=== PATIENT | male | born 1960 | race African-American/Black ===

== ENCOUNTER 2018-02-09 12:05 | Inpatient (IN) | payer OTHER ==
[2018-02-09 13:15] VITALS: BMI 22.4
--- NOTE | 2018-02-09 13:36 | HP ---
CIWA Score - CIWA Score Nausea/Vomitin-Mild Nausea/No Vomiting Muscle Tremors: 3 Anxiety: 3 Agitation: 3 Paroxysmal Sweats: 1-Minimal Palms Moist Orientation: 0-Oriented Tacttile Disturbances: 1-Very Mild Itch/Numbness Auditory Disturbances: 0-None Visual Disturbances: 0-None Headache: 1-Very Mild CIWA-Ar Total Score: 13 Admission ROS BHS - HPI Chief Complaint: alcohol withdrawal sx Allergies/Adverse Reactions: Allergies Allergy/AdvReac Type Severity Reaction Status Date / Time No Known Allergies Allergy Verified 02/09/18 13:36 History of Present Illness: 57 years old male with long history of alcohol nicotine dependence last detox [facility] "many years ago" stated chronic back pain an trouble sleep at night is admitted to detox Exam Limitations: No Limitations - Ebola screening Have you traveled outside of the country in the last 21 days: No Have you had contact with anyone from an Ebola affected area: No Have you been sick,other than usual withdrawal symptoms: No Do you have a fever: No - Review of Systems Constitutional: Loss of Appetite, Changes in sleep, Unintentional Wgt. Loss, Unexplained wgt Loss EENT: reports: Blurred Vision (eye glasses) Respiratory: reports: No Symptoms reported Cardiac: reports: No Symptoms Reported GI: reports: Nausea, Poor Appetite, Poor Fluid Intake, Abdominal cramping : reports: No Symptoms Reported Musculoskeletal: reports: No Symptoms Reported Integumentary: reports: No Symptoms Reported Neuro: reports: Tremors Endocrine: reports: No Symptoms Reported Hematology: reports: No Symptoms Reported Psychiatric: reports: Judgement Intact, Orientated x3, Anxious, Depressed Other Systems: Reviewed and Negative Patient History - Patient Medical History Hx Anemia: No Hx Asthma: No Hx Chronic Obstructive Pulmonary Disease (COPD): No Hx Cancer: No Hx Cardiac Disorders: No Hx Congestive Heart Failure: No Hx Hypertension: No Hx Hypercholesterolemia: No Hx Pacemaker: No HX Cerebrovascular Accident: No Hx Seizures: No Hx Dementia: No Hx Diabetes: No Hx Gastrointestinal Disorders: No Hx Liver Disease: No Hx Genitourinary Disorders: No Hx Sexually Transmitted Disorders: No Hx Renal Disease (ESRD): No Hx Thyroid Disease: No Hx Human Immunodeficiency Virus (HIV): No Hx Hepatitis C: No Hx Depression: Yes Hx Suicide Attempt: No Hx Bipolar Disorder: No Hx Schizophrenia: No - Patient Surgical History Past Surgical History: No Other Surgical History: lumbar spine sciatic both legs - PPD History Previous Implant?: Yes Documented Results: Negative w/o proof Implanted On Prior [facility] Admission?: No PPD to be Administered?: Yes - Smoking Cessation Smoking history: Current every day smoker Have you smoked in the past 12 months: Yes Aproximately how many cigarettes per day: 10 Cigars Per Day: 0 Hx Chewing Tobacco Use: No Initiated information on smoking cessation: Yes 'Breaking Loose' booklet given: 02/09/18 - Substance & Tx. History Hx Alcohol Use: Yes Hx Substance Use: Yes Substance Use Type: Alcohol, Cocaine, Marijuana Hx Substance Use Treatment: Yes ([facility] "many years ago") - Substances Abused Crack Route: Smoking Frequency: 1-2 times per week Amount used: $100 Age of first use: 17 Date of Last Use: 02/08/18 Alcohol-vodka/beer Route: Oral Frequency: Daily Amount used: 2-3 pts./4 (40 oz.) Age of first use: 12 Date of Last Use: 02/09/18 Family Disease History - Family Disease History Family Disease History: Diabetes: Grandparent, [place]: Father (), Mother, Other: Father Admission Physical Exam S - Vital Signs Vital Signs: Vital Signs - 24 hr 02/09/18 13:12 Temperature 97.4 F L Pulse Rate 78 Respiratory 20 Rate Blood Pressure 131/75 - Physical General Appearance: Yes: Appropriately Dressed, Mild Distress, Thin, Tremorous, Irritable, Sweating, Anxious HEENTM: Yes: Hearing grossly Normal, Normocephalic, Normal Voice Respiratory: Yes: Chest Non-Tender, Lungs Clear, Normal Breath Sounds, No Respiratory Distress, No Accessory Muscle Use Neck: Yes: Supple, Trachea in good position Breast: Yes: Breasts Symetrical, No Discharge Cardiology: Yes: Regular Rhythm, Regular Rate, S1, S2 Abdominal: Yes: Normal Bowel Sounds, Non Tender, Flat Genitourinary: Yes: Within Normal Limits Back: Yes: Normal Inspection Musculoskeletal: Yes: full range of Motion, Gait Steady, Back pain Extremities: Yes: Normal Inspection, Normal Range of Motion, Non-Tender, Tremors Neurological: Yes: Fully Oriented, Alert, Motor Strength 5/5, Normal Response, Depressed Affect Integumentary: Yes: Warm Lymphatic: Yes: Within Normal Limits - Diagnostic (1) Alcohol dependence with uncomplicated withdrawal Current Visit: Yes Status: Acute (2) Nicotine dependence Current Visit: Yes Status: Acute Qualifiers: Nicotine product type: cigarettes Substance use status: in withdrawal Qualified Code(s): F17.213 - Nicotine dependence, cigarettes, with withdrawal (3) Anxiety Current Visit: Yes Status: Suspected Cleared for Admission [facility] - Detox or Rehab [facility] Level of Care: Medically Managed Detox Regimen/Protocol: Librium S Breath Alcohol Content Breath Alcohol Content: 0 Urine Drug Screen - Control Is Test Valid: Yes - Results Drug Screen Negative: No Urine Drug Screen Results: PO-Cocaine, BZO-Benzodiazepines
[2018-02-09] MEDS ORDERED: MAG HYDROX/AL HYDROX/SIMETH 30 ML UNIT-DOSE CUP PO PRN (13:44)
[2018-02-09] MEDS ORDERED: MAGNESIUM HYDROX 2400MG/30ML ORAL SUSPENSION 30 ML CUP PO PRN (13:44)
[2018-02-09] MEDS ORDERED: ACETAMINOPHEN 325 MG TABLET (FP) PO PRN (13:44)
[2018-02-09] MEDS ORDERED: P-EPHED 60MG/TRIPROLIDI 2.5MG TABLET PO PRN (13:44)
[2018-02-09] MEDS ORDERED: MENTHOL/PHENOL 1 EACH UD MM PRN (13:44)
[2018-02-09] MEDS ORDERED: LOPERAMIDE HCL 2 MG CAPSULE PO PRN (13:44)
[2018-02-09] MEDS ORDERED: MAGNESIUM CITRATE 300 ML BOTTLE PO PRN (13:44)
[2018-02-09] MEDS ORDERED: guaiFENesin/D-METHORPHAN HB 10 ML UNIT-DOSE CUPS PO PRN (13:44)
[2018-02-09] MEDS ORDERED: NICOTINE POLACRILEX 2 MG GUM BUC PRN (13:44)
[2018-02-09] MEDS ORDERED: IBUPROFEN 400 MG TABLET (FP) PO PRN (13:44)
[2018-02-09] MEDS: NICOTINE 14 MG/24 HOURS TOPICAL PATCH TD SCH (16:55)
[2018-02-09] MEDS: LIDOCAINE 5% TOPICAL PATCH TP SCH (16:55)
[2018-02-09] MEDS: chlordiazePOXIDE HCL 25 MG CAPSULE PO SCH ×2 (17:00→22:04)
--- NOTE | 2018-02-09 17:30 | CONSULT ---
[facility] Psychiatric Consult - Data Date of interview: 02/09/18 Admission source: [facility] Identifying data: Patient is a 57 year old male male, father of two, unemployed and currently homeless. This is patient's first admission to detox at [facility]. Pt. admitted to for alcohol and benzodiazepine dependence. Substance Abuse History: Smoking Cessation. Smoking history: Current every day smoker. Have you smoked in the past 12 months: Yes. Aproximately how many cigarettes per day: 10. Cigars Per Day: 0. Hx Chewing Tobacco Use: No. Initiated information on smoking cessation: Yes. 'Breaking Loose' booklet given : 02/09/18. - Substance & Tx. History. Hx Alcohol Use: Yes. Hx Substance Use : Yes. Substance Use Type: Alcohol, Cocaine, Marijuana. Hx Substance Use Treatment: Yes ([facility] "many years ago"). - Substances Abused. Crack. Route: Smoking. Frequency: 1-2 times per week. Amount used: $100. Age of first use: 17. Date of Last Use: 02/08/18. Alcohol-vodka/beer. Route: Oral. Frequency: Daily. Amount used: 2-3 pts./4 (40 oz.). Age of first use: 12. Date of Last Use: 02/09/18 Medical History: Surgery:lumbar spine sciatic both legs Psychiatric History: Patient denies h/o psychiatric hospitalization, outpatient care, and suicide attempt. Pt reports poor sleep. Physical/Sexual Abuse/Trauma History: Denies. Mental Status Exam - Mental Status Exam Alert and Oriented to: Time, Place, Person Cognitive Function: Good Patient Appearance: Well Groomed Mood: Hopeful Affect: Mood Congruent Patient Behavior: Appropriate, Cooperative Speech Pattern: Appropriate Voice Loudness: Normal Thought Process: Intact, Goal Oriented Thought Disorder: Not Present Hallucinations: Denies Suicidal Ideation: Denies Homicidal Ideation: Denies Insight/Judgement: Poor Sleep: Poorly Appetite: Fair Muscle strength/Tone: Normal Gait/Station: Normal Psychiatric Findings - Problem List ([place] 1, 2,3) (1) Alcohol dependence with uncomplicated withdrawal Current Visit: Yes Status: Acute (2) Benzodiazepine dependence Current Visit: Yes Status: Acute (3) Cocaine dependence Current Visit: Yes Status: Acute (4) Insomnia Current Visit: Yes Status: Acute - Initial Treatment Plan Initial Treatment Plan: Psychoeducation provided. Detoxification in progress. Melatonin 5mg ordered by CUSTOMER SUPPORT ADVISOR. Observation.
[2018-02-09] MEDS: THIAMINE HCL 100 MG TABLET (FP) PO SCH (22:05)
[2018-02-09] MEDS: LIDOCAINE PATCH REMOVAL MC SCH (22:05)
[2018-02-09 23:29] LABS: URINE APPEARANCE CLEAR; URINE BILIRUBIN NEGATIVE (<2.0 mg/dL); URINE COLOR YELLOW; URINE GLUCOSE (UA) NEGATIVE (NEGATIVE); URINE KETONE NEGATIVE (NEGATIVE); URINE LEUK ESTERASE NEGATIVE (NEGATIVE); URINE NITRITE NEGATIVE (NEGATIVE); URINE PROTEIN NEGATIVE (NEGATIVE); URINE UROBILINOGEN NEGATIVE mg/dL (0.2-1.0)
[2018-02-10] MEDS: chlordiazePOXIDE HCL 25 MG CAPSULE PO PRN (00:28)
[2018-02-10] MEDS: MELATONIN 5 MG TABLETS PO PRN ×2 (00:28→22:12)
[2018-02-10] MEDS: chlordiazePOXIDE HCL 25 MG CAPSULE PO SCH ×4 (05:37→22:11)
[2018-02-10 09:53] LABS: MEAN PLT VOLUME 9.8 fl (7.5-11.1); PLATELET COUNT 263 K/MM3 (134-434)
[2018-02-10 09:56] LABS: HEMOGLOBIN 14.5 GM/dL (11.7-16.9); MCH 29.1 pg (25.7-33.7); MCHC 32.8 g/dl (32.0-35.9); MEAN CELL VOLUME 88.6 fl (80-96); RBC 4.97 M/mm3 (4.00-5.60); RDW 14.3 % (11.9-15.9); WHITE BLOOD COUNT 5.9 K/mm3 (4.0-10.0)
--- NOTE | 2018-02-10 09:58 | PN ---
S CIWA - CIWA Score Nausea/Vomitin-Mild Nausea/No Vomiting Muscle Tremors: 3 Anxiety: 3 Agitation: 2 Paroxysmal Sweats: 1-Minimal Palms Moist Orientation: 0-Oriented Tacttile Disturbances: 1-Very Mild Itch/Numbness Auditory Disturbances: 0-None Visual Disturbances: 0-None Headache: 0-None Present CIWA-Ar Total Score: 11 BHS Progress Note (SOAP) Subjective: sweat tremor trouble sleep at night restlessness Objective: 02/10/18 09:59 Vital Signs Temperature 97.2 F L 02/10/18 06:35 Pulse Rate 65 02/10/18 06:35 Respiratory Rate 18 02/10/18 06:35 Blood Pressure 146/78 02/10/18 06:35 O2 Sat by Pulse Oximetry (%) Laboratory Last Values WBC 5.9 K/mm3 (4.0-10.0) 02/10/18 06:00 RBC 4.97 M/mm3 (4.00-5.60) 02/10/18 06:00 Hgb 14.5 GM/dL (11.7-16.9) 02/10/18 06:00 Hct 44.0 % (35.4-49) 02/10/18 06:00 MCV 88.6 fl (80-96) 02/10/18 06:00 MCH 29.1 pg (25.7-33.7) 02/10/18 06:00 MCHC 32.8 g/dl (32.0-35.9) 02/10/18 06:00 RDW 14.3 % (11.9-15.9) 02/10/18 06:00 Plt Count 263 K/MM3 (134-434) 02/10/18 06:00 MPV 9.8 fl (7.5-11.1) 02/10/18 06:00 Urine Color Yellow 02/09/18 23:15 Urine Appearance Clear 02/09/18 23:15 Urine pH 5.0 (5.0-8.0) 02/09/18 23:15 Ur Specific [place] 1.024 (1.001-1.035) 02/09/18 23:15 Urine Protein Negative (NEGATIVE) 02/09/18 23:15 Urine Glucose (UA) Negative (NEGATIVE) 02/09/18 23:15 Urine Ketones Negative (NEGATIVE) 02/09/18 23:15 Urine Blood Negative (NEGATIVE) 02/09/18 23:15 Urine Nitrite Negative (NEGATIVE) 02/09/18 23:15 Urine Bilirubin Negative (<2.0 mg/dL) 02/09/18 23:15 Urine Urobilinogen Negative mg/dL (0.2-1.0) 02/09/18 23:15 Ur Leukocyte Esterase Negative (NEGATIVE) 02/09/18 23:15 lab noted Assessment: 02/10/18 09:59 alcohol withdrawal sx Plan: continue detox
[2018-02-10 10:43] LABS: CHLORIDE 104 mmol/L (98-107); POTASSIUM 4.1 mmol/L (3.5-5.1); SODIUM 142 mmol/L (136-145)
[2018-02-10 11:01] LABS: ALBUMIN 4.2 g/dl (3.4-5.0); ALK PHOS 79 U/L (45-117); ANION GAP 9 (8-16); BILIRUBIN,TOTAL 0.5 mg/dL (0.2-1.0); BLOOD UREA NITROGEN 19 mg/dL (7-18); CALCIUM 9.1 mg/dL (8.5-10.1); CO2 29 mmol/L (21-32); CREATININE 1.2 mg/dL (0.7-1.3); GLUCOSE,RANDOM 74 mg/dL (74-106); SGOT/AST 27 U/L (15-37); SGPT/ALT 47 U/L (12-78); TOT PROT 8.2 g/dl (6.4-8.2)
[2018-02-10] MEDS: PRENATAL VITAMINS W/ FOLIC ACID TABLET (FP) PO SCH (11:04)
[2018-02-10] MEDS: NICOTINE 14 MG/24 HOURS TOPICAL PATCH TD SCH (11:05)
[2018-02-10] MEDS: LIDOCAINE 5% TOPICAL PATCH TP SCH (11:05)
[2018-02-10] MEDS: THIAMINE HCL 100 MG TABLET (FP) PO SCH (22:11)
[2018-02-10] MEDS: LIDOCAINE PATCH REMOVAL MC SCH (22:12)
[2018-02-11] MEDS: chlordiazePOXIDE HCL 25 MG CAPSULE PO SCH ×2 (05:22→11:00)
--- NOTE | 2018-02-11 09:09 | EKG ---
Test Reason : Blood Pressure : / mmHG Vent. Rate : 069 BPM Atrial Rate : 069 BPM P-R Int : 160 ms QRS Dur : 082 ms QT Int : 414 ms P-R-T Axes : 083 063 072 degrees QTc Int : 443 ms NORMAL SINUS RHYTHM POSSIBLE LEFT ATRIAL ENLARGEMENT NO PREVIOUS ECGS AVAILABLE Confirmed by CAIN ULLOA MD ([id number]) on 02/11/2018 9:08:37 AM Referred By: Confirmed By:CAIN ULLOA MD
[2018-02-11] MEDS: LIDOCAINE 5% TOPICAL PATCH TP SCH (11:00)
[2018-02-11] MEDS: PRENATAL VITAMINS W/ FOLIC ACID TABLET (FP) PO SCH (11:00)
[2018-02-11] MEDS: NICOTINE 14 MG/24 HOURS TOPICAL PATCH TD SCH (11:00)
--- NOTE | 2018-02-11 11:18 | PN ---
S CIWA - CIWA Score Nausea/Vomitin-No Nausea/No Vomiting Muscle Tremors: 3 Anxiety: 4-Mod. Anxious/Guarded Agitation: 3 Paroxysmal Sweats: 1-Minimal Palms Moist Orientation: 0-Oriented Tacttile Disturbances: 0-None Auditory Disturbances: 0-None Visual Disturbances: 0-None Headache: 0-None Present CIWA-Ar Total Score: 11 BHS Progress Note (SOAP) Subjective: ANXIETY,SWEATS, TREMORS,FATIGUE. Objective: 02/11/18 11:17 Vital Signs 02/11/18 02/11/18 02/11/18 03:30 06:00 10:00 Temperature 96.8 F L 96.3 F L Pulse Rate 70 70 Respiratory 18 18 18 Rate Blood Pressure 120/66 116/72 Laboratory Tests 02/09/18 02/09/18 02/10/18 06:00 23:15 06:00 WBC 5.9 RBC 4.97 Hgb 14.5 Hct 44.0 MCV 88.6 MCH 29.1 MCHC 32.8 RDW 14.3 Plt Count 263 MPV 9.8 Sodium Potassium Chloride Carbon Dioxide Anion Gap BUN Creatinine Creat Clearance w eGFR Random Glucose Calcium Total Bilirubin AST ALT Alkaline Phosphatase Total Protein Albumin Urine Color Yellow Urine Appearance Clear Urine pH 5.0 Ur Specific [place] 1.024 Urine Protein Negative Urine Glucose (UA) Negative Urine Ketones Negative Urine Blood Negative Urine Nitrite Negative Urine Bilirubin Negative Urine Urobilinogen Negative Ur Leukocyte Esterase Negative RPR Titer HIV 1&2 Antibody Screen Negative HIV P24 Antigen Negative 02/10/18 02/10/18 06:00 06:00 WBC RBC Hgb Hct MCV MCH MCHC RDW Plt Count MPV Sodium 142 Potassium 4.1 Chloride 104 Carbon Dioxide 29 Anion Gap 9 BUN 19 H Creatinine 1.2 Creat Clearance w eGFR > 60 Random Glucose 74 Calcium 9.1 Total Bilirubin 0.5 AST 27 ALT 47 Alkaline Phosphatase 79 Total Protein 8.2 Albumin 4.2 Urine Color Urine Appearance Urine pH Ur Specific [place] Urine Protein Urine Glucose (UA) Urine Ketones Urine Blood Urine Nitrite Urine Bilirubin Urine Urobilinogen Ur Leukocyte Esterase RPR Titer Nonreactive HIV 1&2 Antibody Screen HIV P24 Antigen Assessment: 02/11/18 11:18 WITHDRAWAL SX Plan: CONTINUE DETOX
--- NOTE | 2018-02-11 17:07 | PN ---
Psychiatric Progress Note Vital Signs: Vital Signs Period Temp Pulse Resp BP Sys/Wilks Pulse Ox Last 24 Hr 96.3 F-98.2 F 69-91 18-19 116-138/61-81 Date of Session: 02/11/18 Chief Complaint:: " i can't sleep." HPI: Pt. admitted to for alcohol and benzodiazepine dependence ROS: Surgery:lumbar spine sciatic both legs Current Medications: Active Medications Generic Name Dose Route Start Last Admin Trade Name Freq PRN Reason Stop Dose Admin Acetaminophen 650 mg 02/09/18 13:44 Tylenol - PO Q4H PRN FEVER Al Hydroxide/Mg Hydroxide 30 ml 02/09/18 13:44 Mylanta Oral Suspension - PO Q6H PRN DYSPEPSIA Baclofen 10 mg 02/09/18 13:47 Lioresal - PO TID PRN BACK PAIN Chlordiazepoxide HCl 15 mg 02/11/18 17:00 Librium - PO 02/12/18 11:01 [id number] ALEX Chlordiazepoxide HCl 25 mg 02/09/18 13:44 02/10/18 00:28 Librium - PO 02/12/18 13:43 25 mg Q4H PRN Administration WITHDRAWAL(CONT SUBST) Chlordiazepoxide HCl 10 mg 02/12/18 17:00 Librium - PO 02/13/18 11:01 [id number] ALEX Eucalyptus/Menthol/Phenol/Sorbitol 1 each 02/09/18 13:44 Cepastat Lozenge - MM Q4H PRN SORE THROAT Guaifenesin 10 ml 02/09/18 13:44 Robitussin Dm - PO Q6H PRN COUGH Ibuprofen 400 mg 02/09/18 13:44 02/10/18 11:09 Motrin - PO 400 mg Q6H PRN Administration PAIN LEVEL 4-6 Lidocaine 1 patch 02/09/18 14:00 02/11/18 11:00 Lidoderm Patch - TP 1 patch DAILY ALEX Administration Loperamide HCl 4 mg 02/09/18 13:44 Imodium - PO Q6H PRN DIARRHEA Magnesium Citrate 300 ml 02/09/18 13:44 Citroma - PO Q48H PRN CONSTIPATION Magnesium Hydroxide 30 ml 02/09/18 13:44 Milk Of Magnesia - PO DAILY PRN CONSTIPATION Melatonin 5 mg 02/09/18 22:00 02/10/18 22:12 Melatonin PO 5 mg HS PRN Administration INSOMNIA Miscellaneous 1 each 02/09/18 22:00 02/10/18 22:12 Lidoderm Patch Removal MC 1 each DAILY@2200 ALEX Administration Nicotine 14 mg 02/09/18 14:45 02/11/18 11:00 Nicoderm Patch - TD 14 mg DAILY ALEX Administration Nicotine Polacrilex 2 mg 02/09/18 13:44 Nicorette Gum - BUC Q2H PRN NICOTINE REPLACEMENT RX Multivit/Folic Acid/Iron 1 tab 02/10/18 10:00 02/11/18 11:00 Vitamins ([facility]) - PO 1 tab DAILY ALEX Administration Pseudoephedrine/Triprolidine 1 combo 02/09/18 13:44 Actifed - PO TID PRN NASAL CONGESTION Thiamine HCl 100 mg 02/09/18 22:00 02/10/18 22:11 Vitamin B1 - PO 100 mg HS ALEX Administration Medication(s) Change(s): Yes. Will d/c Melatonin 5mg and order Ambien 5mg Current Side Effect: No Lab tests ordered: No Lab tests reviewed: Yes Provider note:: Radio Board Operator Announcer met with patient concerning psychiatric reconsultation. Pt. reports poor sleep despite accepting melatonin 5mg. Pt. requesting a change in sleep aid. Will order Ambien 5mg qhs prn. Psychoeducation and sleep hygiene provided. Benefits and side effects discussed. Pt. made aware of the risk of parasomnia. Verbal consent given. Total face to face time:: 25 Mental Status Exam - Mental Status Exam Alert and Oriented to: Time, Place, Person Cognitive Function: Good Patient Appearance: Well Groomed Mood: Euthymic Affect: Mood Congruent Patient Behavior: Appropriate, Cooperative Speech Pattern: Appropriate Voice Loudness: Normal Thought Process: Intact, Goal Oriented Thought Disorder: Not Present Hallucinations: Denies Suicidal Ideation: Denies Homicidal Ideation: Denies Insight/Judgement: Poor Sleep: Poorly Appetite: Fair Muscle strength/Tone: Normal Gait/Station: Normal Psychiatric Treatment Plan - Problem List (1) Alcohol dependence with uncomplicated withdrawal Current Visit: Yes (2) Benzodiazepine dependence Current Visit: Yes (3) Cocaine dependence Current Visit: Yes Qualifiers: Substance use status: uncomplicated Qualified Code(s): F14.20 - Cocaine dependence, uncomplicated (4) Insomnia Current Visit: Yes
[2018-02-11] MEDS: chlordiazePOXIDE 5 MG CAPSULE PO SCH ×2 (17:43→22:35)
[2018-02-11] MEDS: THIAMINE HCL 100 MG TABLET (FP) PO SCH (22:34)
[2018-02-11] MEDS: ZOLPIDEM TARTRATE 5 MG TABLET PO PRN (22:34)
[2018-02-11] MEDS: LIDOCAINE PATCH REMOVAL MC SCH (22:44)
[2018-02-12] MEDS: chlordiazePOXIDE HCL 25 MG CAPSULE PO PRN (03:47)
[2018-02-12] MEDS: chlordiazePOXIDE 5 MG CAPSULE PO SCH ×2 (06:35→10:25)
[2018-02-12] MEDS: BACLOFEN 10 MG TABLET (FP) PO PRN ×2 (10:25→22:24)
[2018-02-12] MEDS: LIDOCAINE 5% TOPICAL PATCH TP SCH (10:26)
[2018-02-12] MEDS: PRENATAL VITAMINS W/ FOLIC ACID TABLET (FP) PO SCH (10:26)
[2018-02-12] MEDS: NICOTINE 14 MG/24 HOURS TOPICAL PATCH TD SCH (10:27)
--- NOTE | 2018-02-12 12:38 | PN ---
BHS Progress Note (SOAP) Subjective: Shakes and sweats Objective: 02/12/18 12:37 Vital Signs 02/12/18 02/12/18 06:48 10:42 Temperature 96.1 F L 97.3 F L Pulse Rate 74 94 H Respiratory 18 20 Rate Blood Pressure 134/88 129/73 Laboratory Last Values WBC 5.9 K/mm3 (4.0-10.0) 02/10/18 06:00 RBC 4.97 M/mm3 (4.00-5.60) 02/10/18 06:00 Hgb 14.5 GM/dL (11.7-16.9) 02/10/18 06:00 Hct 44.0 % (35.4-49) 02/10/18 06:00 MCV 88.6 fl (80-96) 02/10/18 06:00 MCH 29.1 pg (25.7-33.7) 02/10/18 06:00 MCHC 32.8 g/dl (32.0-35.9) 02/10/18 06:00 RDW 14.3 % (11.9-15.9) 02/10/18 06:00 Plt Count 263 K/MM3 (134-434) 02/10/18 06:00 MPV 9.8 fl (7.5-11.1) 02/10/18 06:00 Sodium 142 mmol/L (136-145) 02/10/18 06:00 Potassium 4.1 mmol/L (3.5-5.1) 02/10/18 06:00 Chloride 104 mmol/L (98-107) 02/10/18 06:00 Carbon Dioxide 29 mmol/L (21-32) 02/10/18 06:00 Anion Gap 9 (8-16) 02/10/18 06:00 BUN 19 mg/dL (7-18) H 02/10/18 06:00 Creatinine 1.2 mg/dL (0.7-1.3) 02/10/18 06:00 Creat Clearance w eGFR > 60 (>60) 02/10/18 06:00 Random Glucose 74 mg/dL (74-106) 02/10/18 06:00 Calcium 9.1 mg/dL (8.5-10.1) 02/10/18 06:00 Total Bilirubin 0.5 mg/dL (0.2-1.0) 02/10/18 06:00 AST 27 U/L (15-37) 02/10/18 06:00 ALT 47 U/L (12-78) 02/10/18 06:00 Alkaline Phosphatase 79 U/L (45-117) 02/10/18 06:00 Total Protein 8.2 g/dl (6.4-8.2) 02/10/18 06:00 Albumin 4.2 g/dl (3.4-5.0) 02/10/18 06:00 Urine Color Yellow 02/09/18 23:15 Urine Appearance Clear 02/09/18 23:15 Urine pH 5.0 (5.0-8.0) 02/09/18 23:15 Ur Specific [place] 1.024 (1.001-1.035) 02/09/18 23:15 Urine Protein Negative (NEGATIVE) 02/09/18 23:15 Urine Glucose (UA) Negative (NEGATIVE) 02/09/18 23:15 Urine Ketones Negative (NEGATIVE) 02/09/18 23:15 Urine Blood Negative (NEGATIVE) 02/09/18 23:15 Urine Nitrite Negative (NEGATIVE) 02/09/18 23:15 Urine Bilirubin Negative (<2.0 mg/dL) 02/09/18 23:15 Urine Urobilinogen Negative mg/dL (0.2-1.0) 02/09/18 23:15 Ur Leukocyte Esterase Negative (NEGATIVE) 02/09/18 23:15 RPR Titer Nonreactive (NONREACTIVE) 02/10/18 06:00 HIV 1&2 Antibody Screen Negative 02/09/18 06:00 HIV P24 Antigen Negative 02/09/18 06:00 Labs noted Assessment: 02/12/18 12:38 Withdrawal sx Plan: Continue detox
[2018-02-12] MEDS: chlordiazePOXIDE HCL 10 MG CAPSULE PO SCH ×2 (19:02→22:24)
[2018-02-12] MEDS: THIAMINE HCL 100 MG TABLET (FP) PO SCH (22:23)
[2018-02-12] MEDS: ZOLPIDEM TARTRATE 5 MG TABLET PO PRN (22:23)
[2018-02-12] MEDS: LIDOCAINE PATCH REMOVAL MC SCH (23:11)
[2018-02-13] MEDS: chlordiazePOXIDE HCL 10 MG CAPSULE PO SCH (06:06)
[2018-02-13] MEDS: BACLOFEN 10 MG TABLET (FP) PO PRN (06:07)
[2018-02-13 07:15] VITALS: BP 136/82; PULSE 76; TEMP 97.5
--- NOTE | 2018-02-13 08:54 | DS ---
[facility] Detox Discharge Summary Admission Date: 02/09/18 Discharge Date: 02/13/18 - History Present History: Alcohol Dependence Additional Comments: 57 years old male admitted 02/09/18 for alcohol withdrawal sx completed alcohol detox regimen tolerated well denies alcohol withdrawal sx aftercare [facility] as per arranged patient left detox unit early of the shift the provider did not have the opportunity face to face with the patient prior to discharge - Physical Exam Results Vital Signs: Vital Signs Temperature 97.5 F L 02/13/18 07:15 Pulse Rate 76 02/13/18 07:15 Respiratory Rate 02/13/18 07:15 Blood Pressure 136/82 02/13/18 07:15 O2 Sat by Pulse Oximetry (%) Pertinent Admission Physical Exam Findings: alcohol withdrawal sx - Treatment Hospital Course: Detox Protocol Followed, Detoxed Safely, Responded well, Discharged Condition Good, Rehab Referral Accepted Patient has Accepted a Rehab Referral to: [facility] - Medication Discharge Medications: Ambulatory Orders Unobtainable 02/09/18 - Diagnosis (1) Alcohol dependence with uncomplicated withdrawal Status: Acute (2) Nicotine dependence Status: Acute Qualifiers: Nicotine product type: cigarettes Substance use status: in withdrawal Qualified Code(s): F17.213 - Nicotine dependence, cigarettes, with withdrawal (3) Anxiety Status: Suspected - AMA Did Patient Leave Against Medical Advice: No
== END 2018-02-13 08:04 | disposition home or self-care (01) | DRG 774 ==
LOC: YASAS 12:05 → Y6N 14:34
PROVIDERS: ADMIT Family Medicine Addiction Medicine; ATTEND Family Medicine Addiction Medicine
PROC: HZ2ZZZZ Detoxification Services for Substance Abuse Treatment (ICD-10-PCS; principal; 2018-02-09)
DX: F10.230 Alcohol dependence with withdrawal, uncomplicated (principal); F14.20 Cocaine dependence, uncomplicated; F13.20 Sedative, hypnotic or anxiolytic dependence, uncomplicated; F17.210 Nicotine dependence, cigarettes, uncomplicated; F41.9 Anxiety disorder, unspecified; G47.00 Insomnia, unspecified
CPT/HCPCS: 36415; 80053; 81003; 85027; 86593; 87389; 93005; 93010; J0475

== ENCOUNTER 2018-11-19 10:21 | Inpatient (IN) | payer OTHER ==
[2018-11-19 10:35] VITALS: BMI 25.1
--- NOTE | 2018-11-19 13:29 | HP ---
CIWA Score Nausea/Vomitin Muscle Tremors: 2 Anxiety: 2 Agitation: 2 Paroxysmal Sweats: 2 Orientation: 0-Oriented Tacttile Disturbances: 1-Very Mild Itch/Numbness Auditory Disturbances: 1-Very Mild Visual Disturbances: 0-None Headache: 2-Mild CIWA-Ar Total Score: 14 - Admission Criteria OASAS Guidelines: Admission for Medically Managed Detox: Requires at least one of the followin. CIWA greater than 12 2. Seizures within the past 24 hours 3. Delirium tremens within the past 24 hours 4. Hallucinations within the past 24 hours 5. Acute intervention needed for co occurring medical disorder 6. Acute intervention needed for co occurring psychiatric disorder 7. Severe withdrawal that cannot be handled at a lower level of care (continued vomiting, continued diarrhea, abnormal vital signs) requiring intravenous medication and/or fluids 8. Admission ROS S - HPI Chief Complaint: i need help to stop drinking alcohol,cocaine and marijuana Allergies/Adverse Reactions: Allergies Allergy/AdvReac Type Severity Reaction Status Date / Time No Known Allergies Allergy Verified 11/19/18 10:50 History of Present Illness: this 58 years old male with alcohol,cocaine and marijuana dependence,seeking detox,withdrawal symptom,last detox 02/09/18 to 02/13/18 nicotine dependence need help to come in for detox longest sobriety 2 years plan for rehab after detox low back pain - Ebola screening Have you traveled outside of the country in the last 21 days: No (N) Have you had contact with anyone from an Ebola affected area: No Have you been sick,other than usual withdrawal symptoms: No Do you have a fever: No - Review of Systems Constitutional: Loss of Appetite, Malaise, Night Sweats, Changes in sleep, Weakness EENT: reports: Nose Congestion Respiratory: reports: No Symptoms reported Cardiac: reports: No Symptoms Reported GI: reports: Nausea, Poor Appetite, Abdominal cramping : reports: No Symptoms Reported Musculoskeletal: reports: Back Pain, Muscle Pain Integumentary: reports: Dryness Neuro: reports: Headache, Tremors Endocrine: reports: No Symptoms Reported Hematology: reports: No Symptoms Reported Psychiatric: reports: No Sypmtoms Reported, Judgement Intact, Mood/Affect Appropiate, Orientated x3 Other Systems: Reviewed and Negative Patient History - Patient Medical History Hx Anemia: No Hx Asthma: No Hx Chronic Obstructive Pulmonary Disease (COPD): No Hx Cancer: No Hx Cardiac Disorders: No Hx Congestive Heart Failure: No Hx Hypertension: No Hx Hypercholesterolemia: No Hx Pacemaker: No HX Cerebrovascular Accident: No Hx Seizures: No Hx Dementia: No Hx Diabetes: No Hx Gastrointestinal Disorders: No Hx Liver Disease: No Hx Genitourinary Disorders: No Hx Sexually Transmitted Disorders: No Hx Renal Disease (ESRD): No Hx Thyroid Disease: No Hx Human Immunodeficiency Virus (HIV): No (last 11/08 negative) Hx Hepatitis C: No Hx Depression: Yes (no med) Hx Suicide Attempt: No Hx Bipolar Disorder: No Hx Schizophrenia: No Other Medical History: no suicidal,no honicidal,low back pain - Patient Surgical History Past Surgical History: No Hx Neurologic Surgery: No Hx Cataract Extraction: No Hx Cardiac Surgery: No Hx Lung Surgery: No Hx Breast Surgery: No Hx Breast Biopsy: No Hx Abdominal Surgery: No Hx Appendectomy: No Hx Cholecystectomy: No Hx Genitourinary Surgery: No Hx Section: No Hx Orthopedic Surgery: No Other Surgical History: lumbar spine sciatic both legs Anesthesia Reaction: No - PPD History Previous Implant?: Yes Documented Results: Negative w/proof Implanted On Prior [facility] Admission?: Yes Date: 02/11/18 Results: 0 mm PPD to be Administered?: No - Smoking Cessation Smoking history: Current every day smoker Have you smoked in the past 12 months: Yes Aproximately how many cigarettes per day: 10 Cigars Per Day: 0 Hx Chewing Tobacco Use: No Initiated information on smoking cessation: Yes 'Breaking Loose' booklet given: 11/19/18 - Substance & Tx. History Hx Alcohol Use: Yes Hx Substance Use: Yes Substance Use Type: Alcohol, Cocaine, Marijuana Hx Substance Use Treatment: Yes ([facility] 02/09/18 to 02/13/18) - Substances Abused Alcohol Route: Oral Frequency: Daily Amount used: /40oz vodka Age of first use: 12 Date of Last Use: 11/19/18 Cocaine Route: Smoking Frequency: 3-6 times per week Amount used: $200 Age of first use: 38 Date of Last Use: 11/19/18 Marijuana/Hashish Route: Smoking Frequency: 1-2 times per week Amount used: IPUFF Age of first use: 58 Date of Last Use: 11/18/18 Family Disease History - Family Disease History Family Disease History: Diabetes: Grandparent, [place]: Father (), Mother, Other: Father Admission Physical Exam [facility] - Vital Signs Vital Signs: Vital Signs - 24 hr 11/19/18 10:32 Temperature 97.2 F L Pulse Rate 86 Respiratory 18 Rate Blood Pressure 123/74 - Physical General Appearance: Yes: Moderate Distress, Tremorous, Irritable, Sweating, Anxious HEENTM: Yes: Normal ENT Inspection, [place], Pharynx Normal Respiratory: Yes: Lungs Clear, Normal Breath Sounds, No Respiratory Distress Neck: Yes: Within Normal Limits, Supple, Trachea in good position Breast: Yes: Within Normal Limits Cardiology: Yes: Within Normal Limits, Regular Rhythm, Regular Rate, S1, S2 Abdominal: Yes: Within Normal Limits, Normal Bowel Sounds, Non Tender, Soft Genitourinary: Yes: Within Normal Limits Back: Yes: Muscle Spasm Musculoskeletal: Yes: Back pain, Muscle Pain Extremities: Yes: Tremors 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, Fully Oriented, Alert, Motor Strength 5/5 Integumentary: Yes: Dry Lymphatic: Yes: Within Normal Limits - Diagnostic (1) Alcohol dependence with uncomplicated withdrawal Current Visit: No Status: Acute (2) Cocaine dependence Current Visit: No Status: Acute Qualifiers: Substance use status: uncomplicated Qualified Code(s): F14.20 - Cocaine dependence, uncomplicated (3) Nicotine dependence Current Visit: No Status: Acute Qualifiers: Nicotine product type: cigarettes Substance use status: in withdrawal Qualified Code(s): F17.213 - Nicotine dependence, cigarettes, with withdrawal (4) Cannabis abuse Current Visit: Yes Status: Acute (5) Low back pain Current Visit: Yes Status: Acute Cleared for Admission [facility] - Detox or Rehab [facility] Level of Care: Medically Managed Detox Regimen/Protocol: Librium [facility] Breath Alcohol Content Breath Alcohol Content: 0.028 Urine Drug Screen - Results Drug Screen Negative: No Urine Drug Screen Results: PO-Cocaine, BZO-Benzodiazepines Inpatient Rehab Admission - Rehab Decision to Admit Inpatient rehab admission?: No
[2018-11-19] MEDS ORDERED: chlordiazePOXIDE HCL 25 MG CAPSULE PO PRN (13:45)
[2018-11-19] MEDS ORDERED: MAGNESIUM HYDROX 2400MG/30ML ORAL SUSPENSION 30 ML CUP PO PRN (13:48)
[2018-11-19] MEDS ORDERED: MENTHOL/PHENOL 1 EACH UD MM PRN (13:48)
[2018-11-19] MEDS ORDERED: MAG HYDROX/AL HYDROX/SIMETH 30 ML UNIT-DOSE CUP PO PRN (13:48)
[2018-11-19] MEDS ORDERED: MAGNESIUM CITRATE 300 ML BOTTLE PO PRN (13:48)
[2018-11-19] MEDS ORDERED: ACETAMINOPHEN 325 MG TABLET (FP) PO PRN ×2 (13:48)
[2018-11-19] MEDS ORDERED: BISMUTH SUBSALICYLATE 524 MG/30 ML UD PO PRN (13:48)
[2018-11-19] MEDS: NICOTINE 21 MG/24 HOURS TOPICAL PATCH TD SCH (14:05)
[2018-11-19] MEDS: IBUPROFEN 400 MG TABLET (FP) PO PRN ×2 (16:43→22:16)
[2018-11-19] MEDS: chlordiazePOXIDE HCL 25 MG CAPSULE PO SCH ×2 (16:44→22:15)
[2018-11-19] MEDS: METHOCARBAMOL 500 MG TABLET PO PRN (18:21)
[2018-11-19 19:28] LABS: PH,URINE 5.5 (5.0-8.0); URINE APPEARANCE TURBID; URINE BILIRUBIN NEGATIVE (NEGATIVE); URINE COLOR YELLOW; URINE GLUCOSE (UA) NEGATIVE (NEGATIVE); URINE KETONE TRACE (NEGATIVE); URINE LEUK ESTERASE NEGATIVE (NEGATIVE); URINE NITRITE NEGATIVE (NEGATIVE); URINE PROTEIN NEGATIVE (NEGATIVE)
[2018-11-19] MEDS: THIAMINE HCL 100 MG TABLET (FP) PO SCH (22:15)
[2018-11-19] MEDS: MELATONIN 5 MG TABLETS PO PRN (22:18)
[2018-11-20] MEDS: chlordiazePOXIDE HCL 25 MG CAPSULE PO SCH ×4 (06:11→22:16)
[2018-11-20] MEDS: PRENATAL VITAMINS W/ FOLIC ACID TABLET (FP) PO SCH (10:31)
[2018-11-20] MEDS: NICOTINE 21 MG/24 HOURS TOPICAL PATCH TD SCH (10:32)
[2018-11-20] MEDS: IBUPROFEN 400 MG TABLET (FP) PO PRN (10:34)
[2018-11-20] MEDS: hydrOXYzine PAMOATE 25 MG CAPSULE (FP) PO PRN ×2 (10:34→22:18)
[2018-11-20 10:35] LABS: HEMATOCRIT 38.4 % (35.4-49); HEMOGLOBIN 12.3 GM/dL (11.7-16.9); MCH 27.9 pg (25.7-33.7); MCHC 31.9 g/dl (32.0-35.9); MEAN CELL VOLUME 87.5 fl (80-96); MEAN PLT VOLUME 9.8 fl (7.5-11.1); PLATELET COUNT 192 K/MM3 (134-434); RBC 4.39 M/mm3 (4.00-5.60); RDW 14.3 % (11.9-15.9); WHITE BLOOD COUNT 3.6 K/mm3 (4.0-10.0)
[2018-11-20 10:44] LABS: ALBUMIN 3.3 g/dl (3.4-5.0); ALK PHOS 58 U/L (45-117); ANION GAP 4 MMOL/L (8-16); BILIRUBIN,TOTAL 0.2 mg/dL (0.2-1); BLOOD UREA NITROGEN 13 mg/dL (7-18); CALCIUM 8.3 mg/dL (8.5-10.1); CHLORIDE 110 mmol/L (98-107); CO2 25 mmol/L (21-32); GLUCOSE,RANDOM 98 mg/dL (74-106); POTASSIUM 3.8 mmol/L (3.5-5.1); SGOT/AST 10 U/L (15-37); SGPT/ALT 24 U/L (13-61); SODIUM 140 mmol/L (136-145); TOT PROT 6.3 g/dl (6.4-8.2)
[2018-11-20] MEDS ORDERED: LIDOCAINE 5% TOPICAL PATCH TP ONE (11:03)
[2018-11-20] MEDS ORDERED: IBUPROFEN 400 MG TABLET (FP) PO PRN (11:03)
--- NOTE | 2018-11-20 11:08 | PN ---
S CIWA - CIWA Score Nausea/Vomitin-No Nausea/No Vomiting Muscle Tremors: 3 Anxiety: 3 Agitation: 3 Paroxysmal Sweats: 3 Orientation: 0-Oriented Tacttile Disturbances: 0-None Auditory Disturbances: 0-None Visual Disturbances: 0-None Headache: 0-None Present CIWA-Ar Total Score: 12 BHS Progress Note (SOAP) Subjective: low back pain sweats chills shakes interrupted sleep Objective: 11/20/18 11:04 Vital Signs Temperature 97.2 F L 11/20/18 09:48 Pulse Rate 65 11/20/18 09:48 Respiratory Rate 18 11/20/18 09:48 Blood Pressure 152/74 11/20/18 09:48 O2 Sat by Pulse Oximetry (%) Laboratory Tests 11/19/18 11/20/18 11/20/18 15:47 07:30 07:30 WBC 3.6 L RBC 4.39 Hgb 12.3 Hct 38.4 MCV 87.5 MCH 27.9 MCHC 31.9 L RDW 14.3 Plt Count 192 D MPV 9.8 Sodium 140 Potassium 3.8 Chloride 110 H Carbon Dioxide 25 Anion Gap 4 L BUN 13 Creatinine 1.0 Creat Clearance w eGFR 76.22 Random Glucose 98 Calcium 8.3 L Total Bilirubin 0.2 AST 10 L ALT 24 Alkaline Phosphatase 58 Total Protein 6.3 L Albumin 3.3 L Urine Color Yellow Urine Appearance Turbid Urine pH 5.5 Ur Specific [place] 1.030 Urine Protein Negative Urine Glucose (UA) Negative Urine Ketones Trace H Urine Blood Negative Urine Nitrite Negative Urine Bilirubin Negative Urine Urobilinogen 1.0 Ur Leukocyte Esterase Negative aaox3 ambulating no acute distress Assessment: 11/20/18 11:07 withdrawal sx Plan: continue detox increase fluids lidocaine patch motrin 600mg prn
[2018-11-20] MEDS: THIAMINE HCL 100 MG TABLET (FP) PO SCH (22:16)
[2018-11-20] MEDS: LIDOCAINE PATCH REMOVAL MC SCH (22:18)
[2018-11-20] MEDS: METHOCARBAMOL 500 MG TABLET PO PRN (22:18)
[2018-11-21] MEDS: chlordiazePOXIDE HCL 25 MG CAPSULE PO SCH ×2 (05:29→10:19)
--- NOTE | 2018-11-21 09:40 | PN ---
S CIWA - CIWA Score Nausea/Vomitin-No Nausea/No Vomiting Muscle Tremors: 2 Anxiety: 2 Agitation: 2 Paroxysmal Sweats: 2 Orientation: 0-Oriented Tacttile Disturbances: 0-None Auditory Disturbances: 0-None Visual Disturbances: 0-None Headache: 0-None Present CIWA-Ar Total Score: 8 BHS Progress Note (SOAP) Subjective: feeling better sweats tired Objective: 11/21/18 09:39 Vital Signs Temperature 96.8 F L 11/21/18 08:45 Pulse Rate 76 11/21/18 08:45 Respiratory Rate 18 11/21/18 08:45 Blood Pressure 119/76 11/21/18 08:45 O2 Sat by Pulse Oximetry (%) Laboratory Tests 11/19/18 11/20/18 11/20/18 15:47 07:30 07:30 WBC 3.6 L RBC 4.39 Hgb 12.3 Hct 38.4 MCV 87.5 MCH 27.9 MCHC 31.9 L RDW 14.3 Plt Count 192 D MPV 9.8 Sodium 140 Potassium 3.8 Chloride 110 H Carbon Dioxide 25 Anion Gap 4 L BUN 13 Creatinine 1.0 Creat Clearance w eGFR 76.22 Random Glucose 98 Calcium 8.3 L Total Bilirubin 0.2 AST 10 L ALT 24 Alkaline Phosphatase 58 Total Protein 6.3 L Albumin 3.3 L Urine Color Yellow Urine Appearance Turbid Urine pH 5.5 Ur Specific [place] 1.030 Urine Protein Negative Urine Glucose (UA) Negative Urine Ketones Trace H Urine Blood Negative Urine Nitrite Negative Urine Bilirubin Negative Urine Urobilinogen 1.0 Ur Leukocyte Esterase Negative RPR Titer 11/20/18 07:30 WBC RBC Hgb Hct MCV MCH MCHC RDW Plt Count MPV Sodium Potassium Chloride Carbon Dioxide Anion Gap BUN Creatinine Creat Clearance w eGFR Random Glucose Calcium Total Bilirubin AST ALT Alkaline Phosphatase Total Protein Albumin Urine Color Urine Appearance Urine pH Ur Specific [place] Urine Protein Urine Glucose (UA) Urine Ketones Urine Blood Urine Nitrite Urine Bilirubin Urine Urobilinogen Ur Leukocyte Esterase RPR Titer Nonreactive aaox3 ambulating no acute distress Assessment: 11/21/18 09:39 withdrawal sx Plan: continue detox increase fluids
[2018-11-21] MEDS: PRENATAL VITAMINS W/ FOLIC ACID TABLET (FP) PO SCH (10:19)
[2018-11-21] MEDS: NICOTINE 21 MG/24 HOURS TOPICAL PATCH TD SCH (10:20)
[2018-11-21] MEDS: LIDOCAINE 5% TOPICAL PATCH TP SCH (10:20)
[2018-11-21] MEDS: IBUPROFEN 600 MG TABLET (FP) PO PRN ×2 (11:37→22:20)
[2018-11-21] MEDS ORDERED: chlordiazePOXIDE HCL 10 MG CAPSULE PO PRN (17:00)
[2018-11-21] MEDS: chlordiazePOXIDE HCL 10 MG CAPSULE PO SCH ×2 (17:05→22:13)
[2018-11-21] MEDS: METHOCARBAMOL 500 MG TABLET PO PRN (17:11)
[2018-11-21] MEDS: THIAMINE HCL 100 MG TABLET (FP) PO SCH (22:13)
[2018-11-21] MEDS: MELATONIN 5 MG TABLETS PO PRN (22:13)
[2018-11-21] MEDS: LIDOCAINE PATCH REMOVAL MC SCH (22:14)
[2018-11-21] MEDS: hydrOXYzine PAMOATE 25 MG CAPSULE (FP) PO PRN (22:14)
[2018-11-22] MEDS: chlordiazePOXIDE HCL 10 MG CAPSULE PO SCH ×3 (05:29→17:20)
--- NOTE | 2018-11-22 08:43 | PN ---
S Progress Note (SOAP) Subjective: alert,irritable,anxious interrupted sleep Objective: 11/22/18 08:41 Vital Signs Temperature 96.6 F L 11/22/18 06:00 Pulse Rate 63 11/22/18 06:00 Respiratory Rate 18 11/22/18 06:00 Blood Pressure 119/76 11/22/18 06:00 O2 Sat by Pulse Oximetry (%) Assessment: 11/22/18 08:42 withdrawal symptom Plan: continue detox,discharge in am
[2018-11-22] MEDS: LIDOCAINE 5% TOPICAL PATCH TP SCH (10:13)
[2018-11-22] MEDS: PRENATAL VITAMINS W/ FOLIC ACID TABLET (FP) PO SCH (10:13)
[2018-11-22] MEDS: NICOTINE 21 MG/24 HOURS TOPICAL PATCH TD SCH (10:13)
[2018-11-22] MEDS: METHOCARBAMOL 500 MG TABLET PO PRN ×2 (10:15→21:06)
[2018-11-22] MEDS: IBUPROFEN 600 MG TABLET (FP) PO PRN (10:15)
[2018-11-22] MEDS: THIAMINE HCL 100 MG TABLET (FP) PO SCH (21:06)
[2018-11-22] MEDS: LIDOCAINE PATCH REMOVAL MC SCH (21:07)
[2018-11-22] MEDS ORDERED: traZODone HCL 50 MG TABLET (FP) PO SCH (22:00)
[2018-11-23] MEDS: IBUPROFEN 600 MG TABLET (FP) PO PRN (04:33)
[2018-11-23] MEDS: chlordiazePOXIDE HCL 10 MG CAPSULE PO SCH (04:34)
--- NOTE | 2018-11-23 08:31 | DS ---
[facility] Detox Discharge Summary Admission Date: 11/19/18 Discharge Date: 11/23/18 - History Present History: Alcohol Dependence, Cannabis Dependence, Cocaine Dependence, Sedative Dependence - Physical Exam Results Vital Signs: Vital Signs Temperature 97.7 F 11/23/18 07:42 Pulse Rate 67 11/23/18 07:42 Respiratory Rate 18 11/23/18 07:42 Blood Pressure 124/78 11/23/18 07:42 O2 Sat by Pulse Oximetry (%) - Treatment Hospital Course: Detox Protocol Followed, Detoxed Safely, Responded well, Discharged Condition Good, Rehab Referral Accepted - Medication Discharge Medications: Ambulatory Orders NK [No Known Home Medication] 11/19/18 - Diagnosis (1) Cannabis abuse Current Visit: Yes Status: Chronic (2) Low back pain Current Visit: Yes Status: Chronic Qualifiers: Chronicity: chronic Back pain laterality: unspecified (3) Alcohol dependence with uncomplicated withdrawal Current Visit: Yes Status: Chronic (4) Benzodiazepine dependence Current Visit: Yes Status: Chronic (5) Cocaine dependence Current Visit: Yes Status: Chronic Qualifiers: Substance use status: uncomplicated Qualified Code(s): F14.20 - Cocaine dependence, uncomplicated (6) Insomnia Current Visit: Yes Status: Chronic Qualifiers: Insomnia type: unspecified Qualified Code(s): G47.00 - Insomnia, unspecified (7) Nicotine dependence Current Visit: Yes Status: Chronic Qualifiers: Nicotine product type: cigarettes Substance use status: uncomplicated Qualified Code(s): F17.210 - Nicotine dependence, cigarettes, uncomplicated (8) Anxiety Current Visit: No Status: Suspected - AMA Did Patient Leave Against Medical Advice: No (referred to [facility] rehab.)
[2018-11-23 09:04] VITALS: BP 132/79; PULSE 105; TEMP 97.3
[2018-11-23] MEDS: PRENATAL VITAMINS W/ FOLIC ACID TABLET (FP) PO SCH (09:13)
[2018-11-23] MEDS: LIDOCAINE 5% TOPICAL PATCH TP SCH (09:14)
[2018-11-23] MEDS: NICOTINE 21 MG/24 HOURS TOPICAL PATCH TD SCH (09:14)
== END 2018-11-23 09:15 | disposition home or self-care (01) | DRG 774 ==
LOC: YASAS 10:21 → Y6N 13:14
PROVIDERS: ADMIT Surgery; ATTEND Surgery
PROC: HZ2ZZZZ Detoxification Services for Substance Abuse Treatment (ICD-10-PCS; principal; 2018-11-19)
DX: F10.230 Alcohol dependence with withdrawal, uncomplicated (principal); F13.20 Sedative, hypnotic or anxiolytic dependence, uncomplicated; F14.20 Cocaine dependence, uncomplicated; F12.20 Cannabis dependence, uncomplicated; F17.210 Nicotine dependence, cigarettes, uncomplicated; G47.00 Insomnia, unspecified; M54.5 Low back pain; G89.29 Other chronic pain
CPT/HCPCS: 36415; 80053; 81003; 85027; 86593

== ENCOUNTER 2019-04-05 10:07 | Inpatient (IN) | payer OTHER ==
[2019-04-05 10:50] VITALS: BMI 26.4
--- NOTE | 2019-04-05 12:16 | HP ---
CIWA Score Nausea/Vomitin-Mild Nausea/No Vomiting Muscle Tremors: 3 Anxiety: 2 Agitation: 2 Paroxysmal Sweats: 2 Orientation: 0-Oriented Tacttile Disturbances: 0-None Auditory Disturbances: 0-None Visual Disturbances: 0-None Headache: 3-Moderate CIWA-Ar Total Score: 13 - Admission Criteria OASAS Guidelines: Admission for Medically Managed Detox: Requires at least one of the followin. CIWA greater than 12 2. Seizures within the past 24 hours 3. Delirium tremens within the past 24 hours 4. Hallucinations within the past 24 hours 5. Acute intervention needed for co occurring medical disorder 6. Acute intervention needed for co occurring psychiatric disorder 7. Severe withdrawal that cannot be handled at a lower level of care (continued vomiting, continued diarrhea, abnormal vital signs) requiring intravenous medication and/or fluids 8. Admission ROS [facility] Chief Complaint: alcohol detox Allergies/Adverse Reactions: Allergies Allergy/AdvReac Type Severity Reaction Status Date / Time No Known Allergies Allergy Verified 04/05/19 10:43 History of Present Illness: Patient is a 58 yo M with no known medical history except for alcohol use disorder, and cocaine use, presenting here for Alcohol detox. He says he has been drinking since 12. Last drink this morning, 3/4 Pint Vodka, and 2 40oz beers. He says he wants to clean up and go back to work. 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 Lives in an apartment with his girlfriend. After detox he says he intends on going to an outpatient program. No hx of seizures in the past. denies liver dz. 11/19-11/23 for alcohol detox. - Ebola screening Have you traveled outside of the country in the last 21 days: No Have you had contact with anyone from an Ebola affected area: No Do you have a fever: No Patient History - Patient Medical History Hx Anemia: No Hx Asthma: No Hx Chronic Obstructive Pulmonary Disease (COPD): No Hx Cancer: No Hx Cardiac Disorders: No Hx Congestive Heart Failure: No Hx Hypertension: No Hx Hypercholesterolemia: No Hx Pacemaker: No HX Cerebrovascular Accident: No Hx Seizures: No Hx Dementia: No Hx Diabetes: No Hx Gastrointestinal Disorders: No Hx Liver Disease: No Hx Genitourinary Disorders: No Hx Sexually Transmitted Disorders: No Hx Renal Disease (ESRD): No Hx Thyroid Disease: No Hx Human Immunodeficiency Virus (HIV): No (last 11/08 negative) Hx Hepatitis C: No Hx Depression: Yes (no med) Hx Suicide Attempt: No Hx Bipolar Disorder: No Hx Schizophrenia: No - Patient Surgical History Past Surgical History: No Hx Neurologic Surgery: No Hx Cataract Extraction: No Hx Cardiac Surgery: No Hx Lung Surgery: No Hx Breast Surgery: No Hx Breast Biopsy: No Hx Abdominal Surgery: No Hx Appendectomy: No Hx Cholecystectomy: No Hx Genitourinary Surgery: No Hx Section: No Hx Orthopedic Surgery: No Other Surgical History: lumbar spine sciatic both legs Anesthesia Reaction: No - PPD History Date: 02/11/18 Results: 0 mm - Smoking Cessation Smoking history: Current every day smoker Have you smoked in the past 12 months: Yes Aproximately how many cigarettes per day: 10 Cigars Per Day: 0 Hx Chewing Tobacco Use: No Initiated information on smoking cessation: Yes 'Breaking Loose' booklet given: 04/05/19 - Substances abused Alcohol Substance route: Oral Frequency: Daily Amount used: 3 40oz beer, 1 pint of vodka Age of first use: 12 Date of last use: 04/05/19 Cocaine Substance route: Inhalation Frequency: 1-3 times last 30 days Amount used: $150 - $200 Age of first use: 12 Date of last use: 04/05/19 Family Disease History - Family Disease History Family Disease History: Diabetes: Grandparent, [place]: Father (), Mother, Other: Father Admission Physical Exam [facility] - Vital Signs Vital Signs: Vital Signs - 24 hr 04/05/19 10:37 Temperature 98.4 F Pulse Rate 75 Respiratory 18 Rate Blood Pressure 151/82 - Physical General Appearance: Yes: Within Normal Limits, No Apparent Distress HEENTM: Yes: Within Normal Limits, EOMI, Hearing grossly Normal Respiratory: Yes: Within Normal Limits, No Accessory Muscle Use, Crackles (mild crackles) Neck: Yes: Supple Cardiology: Yes: Within Normal Limits, Regular Rate, S1, S2 Abdominal: Yes: Within Normal Limits, Soft Extremities: Yes: Within Normal Limits Neurological: Yes: Within Normal Limits - Diagnostic (1) Alcohol dependence with uncomplicated withdrawal Current Visit: No Status: Chronic (2) Cannabis abuse Current Visit: No Status: Chronic Cleared for Admission [facility] - Detox or Rehab [facility] Level of Care: Medically Managed Breathalyzer - Breathalyzer Breathalyzer: 0 Urine Drug Screen - Test Device Lot number: [id number] Expiration date: 12/20/20 - Control Is test valid?: Yes - Results Drug screen NEGATIVE: No Urine drug screen results: PO-Cocaine Inpatient Rehab Admission - Rehab Decision to Admit Inpatient rehab admission?: No
[2019-04-05] MEDS ORDERED: BISMUTH SUBSALICYLATE 524 MG/30 ML UD PO PRN (12:34)
[2019-04-05] MEDS ORDERED: MAG HYDROX/AL HYDROX/SIMETH 30 ML UNIT-DOSE CUP PO PRN (12:34)
[2019-04-05] MEDS ORDERED: METHOCARBAMOL 500 MG TABLET PO PRN (12:34)
[2019-04-05] MEDS ORDERED: ACETAMINOPHEN 325 MG TABLET (FP) PO PRN ×2 (12:34)
[2019-04-05] MEDS ORDERED: MAGNESIUM CITRATE 300 ML BOTTLE PO PRN (12:34)
[2019-04-05] MEDS ORDERED: IBUPROFEN 400 MG TABLET (FP) PO PRN (12:34)
[2019-04-05] MEDS ORDERED: chlordiazePOXIDE HCL 25 MG CAPSULE PO PRN (12:34)
[2019-04-05] MEDS ORDERED: MAGNESIUM HYDROX 2400MG/30ML ORAL SUSPENSION 30 ML CUP PO PRN (12:34)
[2019-04-05] MEDS ORDERED: MENTHOL/PHENOL 1 EACH UD MM PRN (12:34)
--- NOTE | 2019-04-05 13:19 | PN ---
Teaching Attending Note Name of Resident: James Zambrano ATTENDING PHYSICIAN STATEMENT I saw and evaluated the patient. I reviewed the resident's note and discussed the case with the resident. I agree with the resident's findings and plan as documented. SUBJECTIVE: this 58 years old male with alcohol dependence,cocaine abused,low back pain, sciatica OBJECTIVE: withdrawal signs and symptom Vital Signs Temperature 98.4 F 04/05/19 10:37 Pulse Rate 75 04/05/19 10:37 Respiratory Rate 18 04/05/19 10:37 Blood Pressure 151/82 04/05/19 10:37 O2 Sat by Pulse Oximetry (%) ASSESSMENT AND PLAN: for inpatient detox,medically managed,librium regimen,out patient program after detox
[2019-04-05] MEDS: LIDOCAINE 5% TOPICAL PATCH TP SCH (14:03)
[2019-04-05] MEDS: NICOTINE 21 MG/24 HOURS TOPICAL PATCH TD SCH (14:04)
[2019-04-05 16:36] LABS: HEMATOCRIT 40.9 % (35.4-49); HEMOGLOBIN 13.5 GM/dL (11.7-16.9); MCH 29.2 pg (25.7-33.7); MCHC 33.1 g/dl (32.0-35.9); MEAN CELL VOLUME 88.3 fl (80-96); MEAN PLT VOLUME 9.6 fl (7.5-11.1); PLATELET COUNT 244 K/MM3 (134-434); RBC 4.64 M/mm3 (4.00-5.60); WHITE BLOOD COUNT 9.2 K/mm3 (4.0-10.0)
[2019-04-05 16:48] LABS: ALBUMIN 4.4 g/dl (3.4-5.0); BILIRUBIN,TOTAL 0.5 mg/dL (0.2-1); BLOOD UREA NITROGEN 19.2 mg/dL (7-18); CALCIUM 9.1 mg/dL (8.5-10.1); CREATININE 1.1 mg/dL (0.55-1.3); POTASSIUM 4.4 mmol/L (3.5-5.1)
[2019-04-05] MEDS: chlordiazePOXIDE HCL 25 MG CAPSULE PO SCH ×2 (17:39→22:14)
[2019-04-05] MEDS: MELATONIN 5 MG TABLETS PO PRN (22:15)
[2019-04-05] MEDS: THIAMINE HCL 100 MG TABLET (FP) PO SCH (22:15)
[2019-04-05] MEDS: LIDOCAINE PATCH REMOVAL MC SCH (22:17)
[2019-04-06] MEDS: chlordiazePOXIDE HCL 25 MG CAPSULE PO SCH ×4 (05:14→22:37)
[2019-04-06] MEDS: PRENATAL VITAMINS W/ FOLIC ACID TABLET (FP) PO SCH (10:09)
[2019-04-06] MEDS: NICOTINE 21 MG/24 HOURS TOPICAL PATCH TD SCH (10:09)
[2019-04-06] MEDS: LIDOCAINE 5% TOPICAL PATCH TP SCH (10:11)
[2019-04-06] MEDS: hydrOXYzine PAMOATE 25 MG CAPSULE (FP) PO PRN ×2 (10:12→22:38)
--- NOTE | 2019-04-06 10:20 | PN ---
S CIWA - CIWA Score Nausea/Vomitin-No Nausea/No Vomiting Muscle Tremors: 2 Anxiety: 3 Agitation: 0-Normal Activity Paroxysmal Sweats: 3 Orientation: 0-Oriented Tacttile Disturbances: 0-None Auditory Disturbances: 0-None Visual Disturbances: 0-None Headache: 2-Mild CIWA-Ar Total Score: 10 S Progress Note (SOAP) Subjective: c/o sweats, anxiety, and headache. Objective: 04/06/19 10:19 Vital Signs 04/06/19 04/06/19 04/06/19 03:30 08: 09:40 Temperature 97.3 F L 97.5 F L Pulse Rate 66 76 Respiratory 18 18 18 Rate Blood Pressure 126/68 129/51 L Lab Results WBC 9.2 K/mm3 (4.0-10.0) 04/05/19 13:00 RBC 4.64 M/mm3 (4.00-5.60) 04/05/19 13:00 Hgb 13.5 GM/dL (11.7-16.9) 04/05/19 13:00 Hct 40.9 % (35.4-49) 04/05/19 13:00 MCV 88.3 fl (80-96) 04/05/19 13:00 MCHC 33.1 g/dl (32.0-35.9) 04/05/19 13:00 RDW 15.0 % (11.9-15.9) 04/05/19 13:00 Plt Count 244 K/MM3 (134-434) D 04/05/19 13:00 Sodium 142 mmol/L (136-145) 04/05/19 13:00 Potassium 4.4 mmol/L (3.5-5.1) 04/05/19 13:00 Chloride 106 mmol/L (98-107) 04/05/19 13:00 Carbon Dioxide 25 mmol/L (21-32) 04/05/19 13:00 Anion Gap 11 MMOL/L (8-16) 04/05/19 13:00 BUN 19.2 mg/dL (7-18) H 04/05/19 13:00 Creatinine 1.1 mg/dL (0.55-1.3) 04/05/19 13:00 Random Glucose 75 mg/dL (74-106) 04/05/19 13:00 Calcium 9.1 mg/dL (8.5-10.1) 04/05/19 13:00 Labs noted. Assessment: 04/06/19 10:19 AOX3, in no respiratory distress. Full ROM, ambulating in the unit. withdrawal symptoms. Plan: continue detox.
[2019-04-06] MEDS ORDERED: PNEUMOCOCCAL 23 VACCINE 0.5 ML VIAL IM ONE (12:00)
[2019-04-06] MEDS ORDERED: PNEUMOC 13-VAL CONJ-DIP CRM/PF 0.5 ML DISP.SYRIN IM ONE (12:00)
[2019-04-06] MEDS: THIAMINE HCL 100 MG TABLET (FP) PO SCH (22:37)
[2019-04-06] MEDS: LIDOCAINE PATCH REMOVAL MC SCH (22:38)
[2019-04-07] MEDS: chlordiazePOXIDE HCL 25 MG CAPSULE PO SCH ×4 (05:49→22:45)
[2019-04-07] MEDS: PRENATAL VITAMINS W/ FOLIC ACID TABLET (FP) PO SCH (10:41)
[2019-04-07] MEDS: NICOTINE 21 MG/24 HOURS TOPICAL PATCH TD SCH (10:41)
[2019-04-07] MEDS: LIDOCAINE 5% TOPICAL PATCH TP SCH (10:42)
--- NOTE | 2019-04-07 11:13 | PN ---
S CIWA - CIWA Score Nausea/Vomitin-No Nausea/No Vomiting Muscle Tremors: None Anxiety: 3 Agitation: 0-Normal Activity Paroxysmal Sweats: 3 Orientation: 0-Oriented Tacttile Disturbances: 0-None Auditory Disturbances: 0-None Visual Disturbances: 0-None Headache: 2-Mild CIWA-Ar Total Score: 8 BHS Progress Note (SOAP) Subjective: c/o sweats, anxiety, and headache. Objective: 04/07/19 11:09 Vital Signs 04/07/19 04/07/19 04/07/19 03:30 06:00 09:40 Temperature 97.0 F L 97.5 F L Pulse Rate 64 72 Respiratory 18 18 17 Rate Blood Pressure 106/63 110/60 Lab Results WBC 9.2 K/mm3 (4.0-10.0) 04/05/19 13:00 RBC 4.64 M/mm3 (4.00-5.60) 04/05/19 13:00 Hgb 13.5 GM/dL (11.7-16.9) 04/05/19 13:00 Hct 40.9 % (35.4-49) 04/05/19 13:00 MCV 88.3 fl (80-96) 04/05/19 13:00 MCHC 33.1 g/dl (32.0-35.9) 04/05/19 13:00 RDW 15.0 % (11.9-15.9) 04/05/19 13:00 Plt Count 244 K/MM3 (134-434) D 04/05/19 13:00 Sodium 142 mmol/L (136-145) 04/05/19 13:00 Potassium 4.4 mmol/L (3.5-5.1) 04/05/19 13:00 Chloride 106 mmol/L (98-107) 04/05/19 13:00 Carbon Dioxide 25 mmol/L (21-32) 04/05/19 13:00 Anion Gap 11 MMOL/L (8-16) 04/05/19 13:00 BUN 19.2 mg/dL (7-18) H 04/05/19 13:00 Creatinine 1.1 mg/dL (0.55-1.3) 04/05/19 13:00 Random Glucose 75 mg/dL (74-106) 04/05/19 13:00 Calcium 9.1 mg/dL (8.5-10.1) 04/05/19 13:00 Labs noted. Assessment: 04/07/19 11:13 AOX3, in no acute respiratory distress. Full ROM, ambulating in the unit. Withdrawal symptoms. Plan: continue detox.
[2019-04-07] MEDS: hydrOXYzine PAMOATE 25 MG CAPSULE (FP) PO PRN ×2 (12:21→17:47)
[2019-04-07] MEDS: LIDOCAINE PATCH REMOVAL MC SCH (22:45)
[2019-04-07] MEDS: THIAMINE HCL 100 MG TABLET (FP) PO SCH (22:45)
[2019-04-07] MEDS: MELATONIN 5 MG TABLETS PO PRN (22:46)
[2019-04-08] MEDS ORDERED: chlordiazePOXIDE HCL 10 MG CAPSULE PO PRN
[2019-04-08] MEDS: hydrOXYzine PAMOATE 25 MG CAPSULE (FP) PO PRN ×3 (00:39→18:11)
[2019-04-08] MEDS: chlordiazePOXIDE HCL 10 MG CAPSULE PO SCH ×4 (06:28→22:14)
[2019-04-08] MEDS: LIDOCAINE 5% TOPICAL PATCH TP SCH (11:11)
[2019-04-08] MEDS: PRENATAL VITAMINS W/ FOLIC ACID TABLET (FP) PO SCH (11:12)
[2019-04-08] MEDS: NICOTINE 21 MG/24 HOURS TOPICAL PATCH TD SCH (11:15)
--- NOTE | 2019-04-08 11:57 | PN ---
S CIWA - CIWA Score Nausea/Vomitin-No Nausea/No Vomiting Muscle Tremors: None Anxiety: 2 Agitation: 1-Slight > Activity Paroxysmal Sweats: 3 Orientation: 0-Oriented Tacttile Disturbances: 0-None Auditory Disturbances: 0-None Visual Disturbances: 0-None Headache: 2-Mild CIWA-Ar Total Score: 8 BHS Progress Note (SOAP) Subjective: c/o anxiety, sweats, and headache. Objective: 04/08/19 11:56 Vital Signs 04/08/19 04/08/19 07:10 09:40 Temperature 97.3 F L 98.0 F Pulse Rate 72 73 Respiratory 18 16 Rate Blood Pressure 119/77 125/74 Lab Results WBC 9.2 K/mm3 (4.0-10.0) 04/05/19 13:00 RBC 4.64 M/mm3 (4.00-5.60) 04/05/19 13:00 Hgb 13.5 GM/dL (11.7-16.9) 04/05/19 13:00 Hct 40.9 % (35.4-49) 04/05/19 13:00 MCV 88.3 fl (80-96) 04/05/19 13:00 MCHC 33.1 g/dl (32.0-35.9) 04/05/19 13:00 RDW 15.0 % (11.9-15.9) 04/05/19 13:00 Plt Count 244 K/MM3 (134-434) D 04/05/19 13:00 Sodium 142 mmol/L (136-145) 04/05/19 13:00 Potassium 4.4 mmol/L (3.5-5.1) 04/05/19 13:00 Chloride 106 mmol/L (98-107) 04/05/19 13:00 Carbon Dioxide 25 mmol/L (21-32) 04/05/19 13:00 Anion Gap 11 MMOL/L (8-16) 04/05/19 13:00 BUN 19.2 mg/dL (7-18) H 04/05/19 13:00 Creatinine 1.1 mg/dL (0.55-1.3) 04/05/19 13:00 Random Glucose 75 mg/dL (74-106) 04/05/19 13:00 Calcium 9.1 mg/dL (8.5-10.1) 04/05/19 13:00 Labs noted. Assessment: 04/08/19 11:57 AOX3, in no acute distress. Full ROM, ambulating in the unit. Withdrawal symptoms. Plan: continue detox.
[2019-04-08] MEDS: MELATONIN 5 MG TABLETS PO PRN (22:14)
[2019-04-08] MEDS: THIAMINE HCL 100 MG TABLET (FP) PO SCH (22:14)
[2019-04-08] MEDS: LIDOCAINE PATCH REMOVAL MC SCH (22:54)
[2019-04-09] MEDS: hydrOXYzine PAMOATE 25 MG CAPSULE (FP) PO PRN ×3 (01:14→17:55)
[2019-04-09] MEDS: chlordiazePOXIDE HCL 10 MG CAPSULE PO SCH ×2 (05:50→17:53)
--- NOTE | 2019-04-09 09:13 | CONSULT ---
[facility] Psychiatric Consult - Data Date of interview: 04/09/19 Admission source: Self-referred Identifying data: Mr Okeefe is a 58 years old Black male, father of 2 children, unemployed, homeless seeking detox treatment for alcohol, cocaine and cannabis Substance Abuse History: Reports history of alcohol, cocaine and marijuana use. Refer to addiction counselor's summary for further information Medical History: Significant for lumbar pain and Sciatica both legs. Smokes 10 cigarettes daily Psychiatric History: Denies history of previous psychiatric treatment. However, reports sleeping poorly and requesting Seroquel Physical/Sexual Abuse/Trauma History: Denies history of emotional, physical or sexual abuse as well as DV relationship Additional Comment: Denies criminal history Mental Status Exam - Mental Status Exam Alert and Oriented to: Time, Place, Person Cognitive Function: Fair Patient Appearance: Disheveled Mood: Hopeful, Euthymic Patient Behavior: Cooperative Speech Pattern: Clear Voice Loudness: Normal Thought Process: Intact, Goal Oriented Thought Disorder: Not Present Hallucinations: Denies Suicidal Ideation: Denies Homicidal Ideation: Denies Insight/Judgement: Fair Sleep: Poorly Appetite: Good Muscle strength/Tone: Normal Gait/Station: Normal Psychiatric Findings - Problem List ([place] 1, 2,3) (1) Substance-induced sleep disorder Current Visit: Yes Status: Acute (2) Alcohol dependence with uncomplicated withdrawal Current Visit: No Status: Acute (3) Cocaine dependence Current Visit: No Status: Acute Qualifiers: Substance use status: uncomplicated Qualified Code(s): F14.20 - Cocaine dependence, uncomplicated (4) Cannabis abuse Current Visit: No Status: Chronic (5) Nicotine dependence Current Visit: No Status: Chronic Qualifiers: Nicotine product type: cigarettes Substance use status: uncomplicated Qualified Code(s): F17.210 - Nicotine dependence, cigarettes, uncomplicated (6) Low back pain Current Visit: No Status: Chronic Qualifiers: Chronicity: chronic Back pain laterality: unspecified Sciatica presence: with sciatica - Initial Treatment Plan Initial Treatment Plan: 1) Start Belsomra 10 mg po HS prn for insomnia. Benefits vs Risks discussed with patient and he agreed to try it. 2) Continue inpatient detoxification
[2019-04-09] MEDS: NICOTINE 21 MG/24 HOURS TOPICAL PATCH TD SCH (10:13)
[2019-04-09] MEDS: LIDOCAINE 5% TOPICAL PATCH TP SCH (10:13)
[2019-04-09] MEDS: PRENATAL VITAMINS W/ FOLIC ACID TABLET (FP) PO SCH (10:13)
--- NOTE | 2019-04-09 13:32 | PN ---
S CIWA - CIWA Score Nausea/Vomitin-No Nausea/No Vomiting Muscle Tremors: 3 Anxiety: 1-Mildly Anxious Agitation: 2 Paroxysmal Sweats: No Perspiration Orientation: 0-Oriented Tacttile Disturbances: 0-None Auditory Disturbances: 0-None Visual Disturbances: 0-None Headache: 0-None Present CIWA-Ar Total Score: 6 BHS Progress Note (SOAP) Subjective: tired chills Objective: 04/09/19 13:32 Vital Signs Temperature 97.9 F 04/09/19 09:56 Pulse Rate 88 04/09/19 09:56 Respiratory Rate 18 04/09/19 09:56 Blood Pressure 117/59 L 04/09/19 09:56 O2 Sat by Pulse Oximetry (%) aaox3 ambulating no acute distress Assessment: 04/09/19 13:32 withdrawal sx Plan: continue detox increase fluids d/c in am
[2019-04-09] MEDS ORDERED: SUVOREXANT 10 MG TABLET PO PRN (22:00)
[2019-04-09] MEDS: THIAMINE HCL 100 MG TABLET (FP) PO SCH (22:08)
[2019-04-09] MEDS: LIDOCAINE PATCH REMOVAL MC SCH (23:08)
[2019-04-10] MEDS ORDERED: chlordiazePOXIDE HCL 10 MG CAPSULE PO ONE (05:00)
[2019-04-10 07:37] VITALS: BP 100/67; PULSE 70; TEMP 97.3
--- NOTE | 2019-04-10 09:04 | DS ---
[facility] Detox Discharge Summary Admission Date: 04/05/19 Discharge Date: 04/10/19 - History Present History: Alcohol Dependence, Cocaine Dependence - Physical Exam Results Vital Signs: Vital Signs Temperature 97.3 F L 04/10/19 07:36 Pulse Rate 70 04/10/19 07:36 Respiratory Rate 18 04/10/19 07:36 Blood Pressure 100/67 04/10/19 07:36 O2 Sat by Pulse Oximetry (%) Pertinent Admission Physical Exam Findings: pt had arrived in withdrawals Laboratory Tests 04/05/19 04/05/19 04/05/19 13:00 13:00 13:00 WBC 9.2 RBC 4.64 Hgb 13.5 Hct 40.9 MCV 88.3 MCH 29.2 MCHC 33.1 RDW 15.0 Plt Count 244 D MPV 9.6 Sodium 142 Potassium 4.4 Chloride 106 Carbon Dioxide 25 Anion Gap 11 BUN 19.2 H Creatinine 1.1 Est GFR (CKD-EPI)AfAm 84.12 Est GFR (CKD-EPI)NonAf 72.58 Random Glucose 75 Calcium 9.1 Total Bilirubin 0.5 AST 21 ALT 35 Alkaline Phosphatase 63 Total Protein 8.0 Albumin 4.4 RPR Titer Nonreactive HIV 1&2 Ag/Ab, 4th Gen HIV 1&2 Antibody Screen HIV P24 Antigen TB (QFT) Incubation TB Test (QFT) Nil TB Test (QFT) Mitogen TB Test (QFT) Antigen TB Test (QFT) TB Positive Criteria 04/05/19 04/05/19 04/05/19 13:00 13:00 13:00 WBC RBC Hgb Hct MCV MCH MCHC RDW Plt Count MPV Sodium Potassium Chloride Carbon Dioxide Anion Gap BUN Creatinine Est GFR (CKD-EPI)AfAm Est GFR (CKD-EPI)NonAf Random Glucose Calcium Total Bilirubin AST ALT Alkaline Phosphatase Total Protein Albumin RPR Titer HIV 1&2 Ag/Ab, 4th Gen Non reactive HIV 1&2 Antibody Screen Cancelled HIV P24 Antigen Cancelled TB (QFT) Incubation TB Test (QFT) Nil 0.02 TB Test (QFT) Mitogen >10.00 TB Test (QFT) Antigen 0.02 TB Test (QFT) Negative TB Positive Criteria today pt is aaox3 ambulating no s/s of withdrawals - Treatment Hospital Course: Detox Protocol Followed, Detoxed Safely, Responded well, Discharged Condition Good, Rehab Referral Accepted Patient has Accepted a Rehab Referral to: pt declined rehab; referral provided - Medication Discharge Medications: Ambulatory Orders Ibuprofen [Motrin -] 600 mg PO Q6H PRN #90 tablet 11/23/18 - Diagnosis (1) Substance-induced sleep disorder Current Visit: Yes Status: Acute (2) Alcohol dependence with uncomplicated withdrawal Current Visit: Yes Status: Chronic (3) Cocaine dependence Current Visit: Yes Status: Chronic Qualifiers: Substance use status: uncomplicated Qualified Code(s): F14.20 - Cocaine dependence, uncomplicated (4) Benzodiazepine dependence Current Visit: Yes Status: Chronic (5) Cannabis abuse Current Visit: No Status: Chronic (6) Insomnia Current Visit: Yes Status: Chronic Qualifiers: Insomnia type: unspecified Qualified Code(s): G47.00 - Insomnia, unspecified (7) Low back pain Current Visit: Yes Status: Chronic Qualifiers: Chronicity: chronic Back pain laterality: unspecified Sciatica presence: with sciatica (8) Nicotine dependence Current Visit: Yes Status: Chronic Qualifiers: Nicotine product type: cigarettes Substance use status: uncomplicated Qualified Code(s): F17.210 - Nicotine dependence, cigarettes, uncomplicated (9) Anxiety Current Visit: No Status: Suspected - AMA Did Patient Leave Against Medical Advice: No
== END 2019-04-10 09:25 | disposition home or self-care (01) | DRG 774 ==
LOC: YASAS 10:07 → Y6N 13:15
PROVIDERS: ADMIT Surgery; ATTEND Surgery
PROC: HZ2ZZZZ Detoxification Services for Substance Abuse Treatment (ICD-10-PCS; principal; 2019-04-05)
DX: F10.230 Alcohol dependence with withdrawal, uncomplicated (principal); F13.20 Sedative, hypnotic or anxiolytic dependence, uncomplicated; F14.20 Cocaine dependence, uncomplicated; F12.10 Cannabis abuse, uncomplicated; F17.210 Nicotine dependence, cigarettes, uncomplicated; F19.282 Other psychoactive substance dependence with psychoactive substance-induced sleep disorder; F41.9 Anxiety disorder, unspecified; G47.00 Insomnia, unspecified; M54.42 Lumbago with sciatica, left side; M54.41 Lumbago with sciatica, right side; G89.29 Other chronic pain
CPT/HCPCS: 36415; 80053; 85027; 86480; 86593; 87389; 90732; G0009